=== PATIENT | female | born 1960 | race Caucasian/White ===

== ENCOUNTER 2017-07-02 09:28 | Day surgery (SDC) | payer BC ==
[~2017-07-02] VITALS: Ht 152.4 cm; Wt 65.8 kg
--- NOTE | ~2017-07-02 | EGD ---
EGD REPORT [facility] [address] [address] NAME: MARIAMA WILDER : [birth year] STATUS : [facility] [place] PAT#: [id number] AGE: 56 ADM/REG DATE : 07/02/17 MR#: [id number] REPORT SERV DATE: 07/02/17 DICTATED BY: MANAN CHANDRA DATE: 07/02/17 REPORT STATUS : Draft TRANSCRIBED BY: [facility] DATE: 07/02/17 Endoscopy Center Patient Name: Mariama Wilder Date of : 1960 Attending MD: MANAN CHANDRA, Procedure Date No Time: 07/02/2017 Procedure: Lower EUS Indications: Rectal deformity found on endoscopy; subepithelial tumor versus extrinsic compression. Rectal carcinoid Referring MD: MISAEL VALLES MD Medicines: Monitored Anesthesia Care Complications: No immediate complications. Estimated blood loss: None. Procedure: Pre-Anesthesia Assessment: - ASA Grade Assessment: II - A patient with mild systemic disease. After obtaining informed consent, the endoscope was passed under direct vision. Throughout the procedure, the patient's blood pressure, pulse, and oxygen saturations were monitored continuously. The Endoscope was introduced through the anus and advanced to the rectosigmoid junction for ultrasound. The GIF [id number] was introduced through the anus and advanced to the rectosigmoid junction for ultrasound. Findings: The perianal and digital rectal examinations were normal. Endosonographic Finding : The anal canal was normal. The rectum was normal. The perirectal space was normal. Endoscopic Finding : One 8 mm nodule was found in the distal rectum. Preparations were made for mucosal resection. Band ligator and snare mucosal resection was successfully performed. Impression: - Endosonographic images of the anal canal were unremarkable. - Endosonographic images of the rectum were unremarkable. - Endosonographic images of the perirectal space were unremarkable. - Nodule in the distal rectum. - Mucosal resection was successfully performed. Recommendation: - Return to previous diet. - Continue present medications. EGD REPORT [facility] [address] [place], [place] [address]. [address] NAME: MARIAMA WILDER : [birth year] STATUS : REG [facility] [place] PAT#: [id number] AGE: 56 ADM/REG DATE : 07/02/17 MR#: [id number] REPORT SERV DATE: 07/02/17 DICTATED BY: MANAN CHANDRA DATE: 07/02/17 REPORT STATUS : Draft TRANSCRIBED BY: [employer] DATE: 07/02/17 - Await path results. - Repeat lower endoscopic ultrasound for surveillance. Procedure Code(s): --- Professional --- 08035, Sigmoidoscopy, flexible; with endoscopic ultrasound examination 19647, Sigmoidoscopy, flexible; with removal of tumor(s), polyp(s), or other lesion(s) by snare technique Diagnosis Code(s): --- Professional --- K62.89, Other specified diseases of anus and rectum CPT copyright 2013 [employer]. All rights reserved. The codes documented in this report are preliminary and upon check inspector review may be revised to meet current compliance requirements. MANAN CHANDRA, 07/02/2017 11:47 AM Number of Addenda: 0 Note Initiated On: 07/02/2017 10:56 AM [address] [facility] [place] [address]
[~2017-07-02 09:28] MED LIST: CRESTOR20 MG PO; DIOVAN HCT160 MG/25 PO; KAPIDEX60 MG PO; SUCR PO
== END 2017-07-02 23:59 | disposition home or self-care (01) ==
LOC: DMU 09:28
PROVIDERS: Internal Medicine Gastroenterology
PROC: 0DJD8ZZ Inspection of Lower Intestinal Tract, Via Natural or Artificial Opening Endoscopic (ICD-10-PCS; principal; 2017-07-02 11:00)
PROC: 0DBP8ZX Excision of Rectum, Via Natural or Artificial Opening Endoscopic, Diagnostic (ICD-10-PCS; 2017-07-02 11:00)
DX: D3A.026 Benign carcinoid tumor of the rectum (principal); I10 Essential (primary) hypertension; Z90.710 Acquired absence of both cervix and uterus; Z90.49 Acquired absence of other specified parts of digestive tract; Z88.5 Allergy status to narcotic agent; Z79.899 Other long term (current) drug therapy; Z98.890 Other specified postprocedural states
CPT/HCPCS: 76872; 88305; 88342; 88360; C1725